=== PATIENT | female | born 2000 | race Caucasian/White ===

== ENCOUNTER 2020-11-19 11:00 | Emergency (ER) | payer BC ==
[~2020-11-19] VITALS: Ht 162.6 cm; Wt 58.5 kg
[2020-11-19] MEDS ORDERED: ANTICONCEPTIVOS (11:06)
== END 2020-11-19 14:01 | disposition home or self-care (01) ==
LOC: EMR PED 11:00 → ER 11:00 → EMR PED 11:32
DX: L24.89 Irritant contact dermatitis due to other agents (principal)